=== PATIENT | female | born 1995 | race Hispanic/Latino ===

== ENCOUNTER → 2016-10-23 | Outpatient (CLI) | payer OTHER ==
[2016-10-23 18:02] LABS: CONTROL LINE HCG INT CTR LINE PRESENT
== END ==
LOC: M SMT 14:58
PROVIDERS: ATTEND Advanced Practice Midwife
DX: Z30.8 Encounter for other contraceptive management (principal); Z11.3 Encounter for screening for infections with a predominantly sexual mode of transmission

== ENCOUNTER → 2018-06-04 | Outpatient (REF) | payer OTHER | LOC: M LAB REF 17:18 | PROVIDERS: ATTEND Advanced Practice Midwife | DX: R30.0 Dysuria (principal) ==

== ENCOUNTER → 2018-06-10 | Outpatient (CLI) | payer OTHER ==
--- NOTE | 2018-06-10 14:30 | REP ---
OB ULTRASOUND: Real-time sonographic evaluation of the gravid uterus is performed. There is a single living intrauterine gestation with an estimated gestational age of 26 weeks 0 days, EDC 09/16/2018. Today's measurements indicate appropriate growth. Biometry and Growth: BPD 60 mm = 24 weeks 3 days, 16th percentile HC 237 mm = 25 weeks 5 days, 44th percentile AC 212 mm = 25 weeks 5 days, 45th percentile FL 46 mm = 25 weeks 2 days, 36th percentile HC/AC ratio 1.11 within normal range. Estimated weight 830 grams, 33rd percentile. SEEN/GROSSLY UNREMARKABLE Lateral ventricles Yes Posterior fossa Yes Upper lip Yes Four-chamber heart Yes LVOT Yes RVOT Yes Stomach Yes Cord insertion Yes Three vessel cord Yes Kidneys Yes Bladder Yes Spine Yes Cervical length: Closed and measures 3.2 cm in length. heart rate: 124 beats per minute. position: Breech. Placenta: Posterior and fundal and grade 0 with no previa or abruption. Amniotic fluid: Within normal limits. Electronically Signed by Jamil Ortiz MD 06/10/2018 04:37 P
== END ==
LOC: M RAD 12:01
PROVIDERS: ATTEND Advanced Practice Midwife
DX: Z34.82 Encounter for supervision of other normal pregnancy, second trimester (principal); Z3A.26 26 weeks gestation of pregnancy

== ENCOUNTER → 2018-06-10 | Outpatient (CLI) | payer OTHER ==
[2018-06-10 15:58] LABS: HEMATOCRIT 36.3 % (36.0-47.0); HEMOGLOBIN 12.1 g/dl (12.0-15.5); MEAN CORPUSCULAR HEMOGLOBIN 33.7 pg (27.0-33.0); MEAN CORPUSCULAR HGB CONC 33.3 g/dl (32.0-36.5); MEAN CORPUSCULAR VOLUME 101.1 fl (80.0-96.0); PLATELET COUNT, AUTOMATED 167 10^3/uL (150-450); RED BLOOD COUNT 3.59 10^6/uL (4.00-5.40)
== END ==
LOC: M LAB 12:54
PROVIDERS: ATTEND Advanced Practice Midwife
DX: Z34.82 Encounter for supervision of other normal pregnancy, second trimester (principal); Z3A.00 Weeks of gestation of pregnancy not specified

== ENCOUNTER → 2018-06-15 | Outpatient (CLI) | payer OTHER | LOC: M LAB 08:11 | PROVIDERS: ATTEND Advanced Practice Midwife | DX: Z34.82 Encounter for supervision of other normal pregnancy, second trimester (principal); Z3A.00 Weeks of gestation of pregnancy not specified ==

== ENCOUNTER → 2018-08-18 | Outpatient (REF) | payer OTHER | LOC: M LAB REF 17:30 | PROVIDERS: ATTEND Advanced Practice Midwife | DX: Z34.83 Encounter for supervision of other normal pregnancy, third trimester (principal); Z3A.00 Weeks of gestation of pregnancy not specified ==

== ENCOUNTER 2018-09-09 19:57 | Inpatient (IN) | payer OTHER ==
[~2018-09-09] VITALS: Ht 149.9 cm; Wt 64.5 kg
[2018-09-09 20:12] VITALS: BP 103/63
[2018-09-09 21:55] LABS: HEMOGLOBIN 13.4 g/dl (12.0-15.5); MEAN CORPUSCULAR HEMOGLOBIN 31.7 pg (27.0-33.0); MEAN CORPUSCULAR HGB CONC 32.7 g/dl (32.0-36.5); MEAN CORPUSCULAR VOLUME 96.9 fl (80.0-96.0); PLATELET COUNT, AUTOMATED 199 10^3/uL (150-450); RED BLOOD COUNT 4.23 10^6/uL (4.00-5.40); WHITE BLOOD COUNT 11.5 10^3/uL (4.0-10.0)
[2018-09-09] MEDS ORDERED: LR 1,000 ML IV SCH (23:31)
[2018-09-09] MEDS ORDERED: FENTANYL 2MCG/ML ROPIVACAINE 0.2% IN 0.9% NACL 100ML IVBAG As Ordered ONE (23:40)
[2018-09-09] MEDS ORDERED: OXYTOCIN DRIP 30 UNITS in APPROPRIATE DILUENT 1 EA IV SCH (23:45)
[2018-09-09 23:57] VITALS: BP 95/54
[2018-09-10] VITALS (27 sets, daily range): BP systolic 77–112; BP diastolic 50–77
[2018-09-10] MEDS ORDERED: NALOXONE INJ 0.4 MG/1 ML VIAL (J2310) IV PRN (02:30)
[2018-09-10] MEDS ORDERED: EPIDURAL COMMENT XX SCH (02:30)
[2018-09-10] MEDS ORDERED: LACTATED RINGER'S 1000 ML IV PRN (02:30)
[2018-09-10] MEDS ORDERED: ePHEDrine SULFATE 25 MG/5 ML(5MG/ML) SYRINGE IV PRN (02:30)
[2018-09-10] MEDS ORDERED: FENTANYL/ROPIVACAINE/NACL BAG 100 ML EPIDURAL SCH (02:30)
[2018-09-10] MEDS ORDERED: REFRIGERATOR IV KEYS XX PRN (02:30)
[2018-09-10] MEDS ORDERED: EPIDURAL/PCA KEYS XX PRN (02:30)
[2018-09-10] MEDS ORDERED: ONDANSETRON 4MG/2ML VIAL (J2405) IV PRN ×2 (02:30→08:15)
[2018-09-10] MEDS ORDERED: diphenhydrAMINE INJ 50MG/ML VIAL (J1200) IV PRN (02:30)
--- NOTE | 2018-09-10 06:22 | IPNPDOC ---
Obstetrical Progress Note Date of Service Sep 10, 2018 Subjective Patient is comfortable with epidural. Objective Vital Signs Date Time Temp Pulse Resp B/P (MAP) Pulse Ox O2 Delivery O2 Flow Rate FiO2 09/10/18 02:13 62 94/50 (65) 09/10/18 01:30 97.3 Assessment Heart Rate (FHR): 110 Variability: Moderate Accelerations: Positive Decelerations: None Heart Rate Tracing: Category I Tocometer Contractions: Yes Frequency: regular Strength: palpated as strong Sterile Vaginal Examination Dilation: 6 cm Effacement (%): 100% Station: 0 Postion/Presentation: Cephalic presentation Assessment and Plan EGA at Admission: 39.0 Weeks & Days 39.1 Status: Reassuring Group B Streptococcus: Negative Anticipate: Vaginal Delivery Additional Comments IV PItocin turned down to 6 mu/min. AROM to a moderate amount of clear fluid. MIGUEL ÁNGEL LOPEZ CNM Sep 10, 2018 06:22
[2018-09-10] MEDS ORDERED: OXYTOCIN DRIP 30 UNITS in APPROPRIATE DILUENT 1 EA IV SCH (08:14)
[2018-09-10] MEDS: LR 1,000 ML IV SCH ×2 (08:14→16:14)
[2018-09-10] MEDS ORDERED: MEASLES,MUMPS,RUBELLA VACCINE INJ (MMR-II) (90707) SC SCH (08:15)
[2018-09-10] MEDS ORDERED: METHYLERGONOVINE MALEATE 0.2 MG TAB PO PRN (08:15)
[2018-09-10] MEDS ORDERED: IBUPROFEN 600 MG TAB PO PRN (08:15)
[2018-09-10] MEDS ORDERED: DIBUCAINE 1% OINTMENT 30GM TOP PRN (08:15)
[2018-09-10] MEDS ORDERED: PROMETHAZINE 25 MG TAB PO PRN (08:15)
[2018-09-10] MEDS ORDERED: RHOGAM 300 MCG (1500 IU) INJ (J2790) IM SCH (08:15)
[2018-09-10] MEDS ORDERED: DOCUSATE SODIUM 100 MG CAP PO PRN (08:15)
[2018-09-10] MEDS ORDERED: ACETAMINOPHEN TAB 650MG DOSE (2X325MG) PO PRN (08:15)
--- NOTE | 2018-09-10 08:28 | NUR ---
Delivery note Spontaneous vaginal delivery Estimated gestational age at delivery: 39+1 weeks The active phase and second stage of labor progressed in normal fashion with epidural anesthesia. Patient received Pitocin labor augmentation. The head delivered left occiput anterior and restituted left occiput transverse. No nuchal cord was noted. The anterior shoulder delivered with gentle downward guidance and the remainder of the body delivered with ease. Cord clamping was delayed for approximately 1 minute after delivery. After doubly clamping the cord, I cut the cord. The was placed on the patient's chest for immediate bonding. [place] data: Apgars 9 and 10. weight , see meditech Time of delivery: 0755. Sex: Female The third stage of labor was actively managed with a bolus of IV Pitocin (30 units in 500 mL of normal saline). The placenta delivered completely intact with no missing cotyledons at 0800. A three-vessel cord with a central insertion was noted. After delivery of the placenta, the uterine fundus was approximately 2 cm below the umbilicus and firm. IV Pitocin was continued to maintain uterine tone. A normal, low level of uterine bleeding was noted. The cervix, vagina, vulva and perineum were inspected for lacerations. A second degree laceration was noted. This was repaired with 3-0 Vicryl in typical fashion. Excellent hemostasis was noted. Estimated blood loss: 300mL All sponges, needles, and instruments were accounted for per [facility] department protocol. Chandler Myers D.O., F.Jesus.Sacr.
--- NOTE | 2018-09-10 08:54 | HPE ---
DATE OF ADMISSION: 09/09/2018 HISTORY OF PRESENT ILLNESS: The patient is a 23-year-old female who was a 2, para 1-0-0-1 at 39 weeks' gestation with an expected date of delivery (PAMELA) of 09/16/2018 based off of her last menstrual period (LMP) and consistent with her first-trimester ultrasound. She initiated care in her first trimester with [facility]. Her has been uncomplicated. She presents to labor and delivery today with complaints of decreased movement and contractions. She denies leaking of fluid or vaginal bleeding. After being monitored, she does report active movement. ALLERGIES: No known drug allergies. CURRENT MEDICATIONS: None. MEDICAL HISTORY: No current problems. SURGICAL HISTORY: Cystectomy, breast augmentation, liposuction. FAMILY HISTORY: Diabetes, kidney disease, depression. SOCIAL HISTORY: The patient is . She denies any use of alcohol during her or prior to . She denies any use of illicit drug use during or prior to . She denies being a smoker. She does have a history of chlamydia. PAST MEDICAL PREGNANCIES: January 2015, the patient delivered a living female by vaginal delivery at 39 weeks' gestation weighing 9 pounds without any complications. LABORATORIES: Blood type is A positive. Antibody screen is negative. Her hemoglobin and hematocrit in her first trimester were 12.1 and 36 with platelets that are 172. Rubella is immune. Her [facility] ([facility]) is nonreactive. Her urine culture has no growth. Hepatitis B surface antigen is negative. HIV is negative. Hepatitis C is nonreactive. Gonorrhea and chlamydia are both negative. First trimester noninvasive screening test (NIPT) showed low risk for aneuploidy and also a normal female. 1-hour glucose test was 146 with a hemoglobin and hematocrit at that time of 12.1 and 36.3 with platelets of 167. She did a 3-hour glucola test with fasting at 76. Her 1-hour was 116. Her 2-hour was 88. Her 3-hour was 100. Her group B streptococcus (GBS) is negative. HEART RATE: 130 beats per minute, moderate variability, positive accelerations, no decelerations. Contractions are frequent. Contractions are every 3-7 minutes. SVE: 4/80/-2, soft, anterior, no show. VITAL SIGNS: Temperature is 96.4, respiratory rate is 18, blood pressure is 103/63, heart rate is 70. PHYSICAL ASSESSMENT: GENERAL: Alert and oriented times three. RESPIRATORY: Regular rate with no use of accessory muscles. ABDOMEN: Gravid and nontender to touch. Cephalic presentation through vaginal examination and Aden maneuver. LOWER EXTREMITIES: No edema. No clonus. ASSESSMENT: Intrauterine (IUP) at 39 weeks' gestation, category 1 heart rate tracing, early labor, group B streptococcus (GBS) negative. PLAN: Admit the patient to labor and delivery. Out of bed ad jae. Clear- liquid diet. Saline lock and IV per unit protocol. Anesthesia consult per patient's request with a lactated Ringer bolus of 800 mL prior to epidural. Consider artificial rupture of membranes (AROM) to help augment labor or intravenous (IV) Pitocin. Anticipate cervical change and spontaneous vaginal delivery. MTDD
[2018-09-10] MEDS: PRENATAL VITAMINS CHEWABLE TABLET PO SCH (09:00)
[2018-09-10] MEDS: IBUPROFEN 800 MG TAB PO PRN (17:35)
[2018-09-10] MEDS: ACETAMINOPHEN 500 MG TAB PO PRN (21:28)
[2018-09-11] MEDS: IBUPROFEN 800 MG TAB PO PRN ×2 (05:05→19:43)
[2018-09-11 05:25] VITALS: BP 90/54
--- NOTE | 2018-09-11 06:51 | NUR ---
Day 1 Status post , uncomplicated Subjective Pain is well controlled. Lochia decreasing and minimal. Voiding spontaneously. Tolerating a regular diet. Ambulating without any assistance. Denies any subjective fever/chills/nausea/vomiting/headache/visual changes/shortness of breath/chest pain. Breast feeding. Desires d/c to home today. Objective Vitals: Normotensive, normal heart rate, afebrile, adequate urine output. Heart: regular, rate, and rhythm. no murmurs/gallops/rubs Lungs: clear to auscultation bilaterally, no wheezes/crackles/rales/ronchi Abd: soft, nontender, nondistended, uterine fundus is 2cm below umbilicus and firm Ext: no significant edema, nontender, negative Vern's bilaterally. Assessment/Plan: day 1. Recovering well. Hemodynamically stable, afebrile, good pain control. -Routine care -Discharge to home today -Routine infectious, fever, pain, and bleeding precautions reviewed Dr. Chandler Myers, Mike.O., F.A.C.O.G.
[2018-09-11] MEDS ORDERED: IBUP80TA PO (07:18)
[2018-09-11] MEDS: PRENATAL VITAMINS CHEWABLE TABLET PO SCH (08:21)
[2018-09-11] MEDS: ACETAMINOPHEN 500 MG TAB PO PRN ×2 (08:26→15:35)
[2018-09-11 18:00] VITALS: BP 92/52
[2018-09-12] MEDS: IBUPROFEN 800 MG TAB PO PRN (05:20)
[2018-09-12 05:47] VITALS: BP 90/50
[2018-09-12] MEDS: PRENATAL VITAMINS CHEWABLE TABLET PO SCH (10:12)
[2018-09-12] MEDS: ACETAMINOPHEN 500 MG TAB PO PRN (10:13)
== END 2018-09-12 10:50 | disposition home or self-care (01) | DRG 807 ==
LOC: M LDO 19:57 → M LDI 21:12 → M OBS 09-10 11:00
PROVIDERS: ADMIT Advanced Practice Midwife; ATTEND Obstetrics & Gynecology
PROC: 10E0XZZ Delivery of Products of Conception, External Approach (ICD-10-PCS; principal; 2018-09-10)
PROC: 0KQM0ZZ Repair Perineum Muscle, Open Approach (ICD-10-PCS; 2018-09-10)
DX: O80 Encounter for full-term uncomplicated delivery (principal); Z37.0 Single live birth; Z3A.39 39 weeks gestation of pregnancy; O70.1 Second degree perineal laceration during delivery

== ENCOUNTER 2019-03-19 10:09 | Emergency (ER) | payer OTHER ==
[~2019-03-19 10:09] MED LIST: IBUP80TA PO
[2019-03-19 10:49] LABS: BASO % 0.3 % (0.0-1.0); EOS # 0.1 10^3/uL (0.0-0.5); EOS % 0.7 % (0.0-3.0); HEMATOCRIT 39.3 % (36.0-47.0); HEMOGLOBIN 12.6 g/dl (12.0-15.5); LYMPH # 1.4 10^3/uL (1.5-5.0); MEAN CORPUSCULAR HEMOGLOBIN 30.4 pg (27.0-33.0); MEAN CORPUSCULAR HGB CONC 32.1 g/dl (32.0-36.5); MEAN CORPUSCULAR VOLUME 94.7 fl (80.0-96.0); MONO # 0.6 10^3/uL (0.0-0.8); MONO % 6.5 % (0.0-5.0); NEUTROPHILS # 7.2 10^3/uL (1.5-8.5); NEUTROPHILS % 77.3 % (36.0-66.0); PLATELET COUNT, AUTOMATED 189 10^3/uL (150-450); RED BLOOD COUNT 4.15 10^6/uL (4.00-5.40); WHITE BLOOD COUNT 9.4 10^3/uL (4.0-10.0)
[2019-03-19 11:43] LABS: BLOOD UREA NITROGEN 14 MG/DL (7-18); CALCIUM LEVEL 8.7 MG/DL (8.5-10.1); CARBON DIOXIDE LEVEL 25 MEQ/L (21-32); CHLORIDE LEVEL 107 MEQ/L (98-107); CREATININE FOR GFR 0.58 MG/DL (0.55-1.30); GLOMERULAR FILTRATION RATE > 60.0 (>60); GLUCOSE, FASTING 84 MG/DL (70-100); HCG, SERUM QUANTITATIVE 65371 MIU/ML; SODIUM LEVEL 139 MEQ/L (136-145)
--- NOTE | 2019-03-19 12:02 | REP ---
FIRST TRIMESTER ULTRASOUND: Real-time sonographic evaluation of the gravid uterus performed. There is a single intrauterine gestation. Estimated gestational age is 6 weeks 6 days based on a crown-rump length of 9 mm. EDC 11/06/2019. heart rate 143 beats per minute. There is a subchorionic hemorrhage to the right of the gestational sac measuring 3.0 x 0.4 x 0.9 cm. No maternal adnexal region abnormalities are seen. There is no evidence of ovarian torsion. Electronically Signed by Jamil Ortiz MD 03/20/2019 03:15 P
[2019-03-19 12:40] LABS: CHLAMYDIA DNA AMPLIFICATION NEGATIVE (NEGATIVE); GC DNA AMPLIFICATION NEGATIVE (NEGATIVE)
[2019-03-19 13:11] VITALS: BP 109/59
== END 2019-03-19 13:21 | disposition home or self-care (01) ==
LOC: M ED 10:09
DX: N83.291 Other ovarian cyst, right side (principal); Z3A.01 Less than 8 weeks gestation of pregnancy

== ENCOUNTER 2019-10-07 10:23 | Emergency (ER) | payer OTHER ==
--- NOTE | 2019-11-26 14:28 | REP ---
CHEST X-RAY: TWO-VIEWS HISTORY: Unavailable. This report was delayed due to a protracted network disruption experienced by this facility. FINDINGS: The lungs are well-inflated and clear. Monitoring electrodes are seen. Pleural angles are sharp. Heart size is normal. IMPRESSION: Negative chest x-ray. MTDD
== END 2019-10-07 13:36 | disposition home or self-care (01) ==
LOC: M ED 10:23
DX: J06.9 Acute upper respiratory infection, unspecified (principal)

== ENCOUNTER 2019-11-12 18:41 | Emergency (ER) | payer OTHER ==
[~2019-11-12] VITALS: Ht 160 cm; Wt 56.0 kg
[2019-11-12] MEDS ORDERED: PYRI1TAB5 PO (20:43)
[2019-11-12] MEDS ORDERED: CIPR-249 PO (20:43)
[2019-11-12] MEDS ORDERED: CIPROFLOXACIN 500MG TABLET PO ONE (20:45)
[2019-11-12 20:58] VITALS: BP 100/60
== END 2019-11-12 21:00 | disposition home or self-care (01) ==
LOC: M ED 18:41
DX: N39.0 Urinary tract infection, site not specified (principal)

== ENCOUNTER → 2020-05-22 | Outpatient (CLI) | payer OTHER ==
[~2020-05-22] MED LIST changes: +CIPR-249 PO; +PYRI1TAB5 PO
== END ==
LOC: M PLALAB 12:23
PROVIDERS: ATTEND Obstetrics & Gynecology
DX: Z34.81 Encounter for supervision of other normal pregnancy, first trimester (principal)

== ENCOUNTER → 2020-05-22 | Outpatient (REF) | payer OTHER | LOC: M PLALAB 12:20 | PROVIDERS: ATTEND Obstetrics & Gynecology | DX: Z3A.12 12 weeks gestation of pregnancy (principal) ==

== ENCOUNTER → 2020-05-25 | Outpatient (REF) | payer OTHER ==
[2020-05-25 15:53] LABS: HEMOGLOBIN 13.9 g/dl (12.0-15.5); MEAN CORPUSCULAR HEMOGLOBIN 32.9 pg (27.0-33.0); MEAN CORPUSCULAR HGB CONC 33.9 g/dl (32.0-36.5); MEAN CORPUSCULAR VOLUME 96.9 fl (80.0-96.0); PLATELET COUNT, AUTOMATED 151 10^3/uL (150-450); RED BLOOD COUNT 4.23 10^6/uL (4.00-5.40); WHITE BLOOD COUNT 10.8 10^3/uL (4.0-10.0)
[2020-05-25 17:38] LABS: HEPATITIS C VIRUS ABY INDEX < 0.0 INDEX (<0.8); HIV 1&2 SCREEN CENTAUR NEGATIVE (NEGATIVE)
== END ==
LOC: M PLALAB 14:03
PROVIDERS: ATTEND Obstetrics & Gynecology
DX: Z36.89 Encounter for other specified antenatal screening (principal); Z3A.12 12 weeks gestation of pregnancy

== ENCOUNTER → 2020-06-22 | Outpatient (CLI) | payer OTHER | LOC: M WHC 12:42 | PROVIDERS: ATTEND Obstetrics & Gynecology | DX: Z36.89 Encounter for other specified antenatal screening (principal); Z3A.17 17 weeks gestation of pregnancy ==

== ENCOUNTER → 2020-07-14 | Outpatient (CLI) | payer OTHER ==
--- NOTE | 2020-07-14 12:08 | REP ---
INDICATION: ANATOMY. COMPARISON: None. TECHNIQUE: Trans abdominal obstetric sonography. FINDINGS: Scanning through the gravid uterus demonstrates a viable single intrauterine gestation in breech lie. motion is observed and heart rate is recorded at 143 beats per minute. A anterior placenta is seen, grade 1, without evidence of placenta previa. Closed cervical length is measured at 3.7 cm transabdominally. No extrauterine abnormality is observed. Amniotic fluid is subjectively normal. No anomaly is seen. The following anatomic structures are identified and felt to be sonographically unremarkable: cranium, cavum, cerebellum and posterior fossa, face and profile, lungs, four-chamber heart with left and right ventricular outflow tract views, diaphragm, left-sided stomach, abdominal wall cord insertion, three-vessel umbilical cord, kidneys and bladder, spine, and upper and lower extremities. There is a small right-sided choroid plexus cyst noted. Biometry chart: BPD 4.7 cm, 20 weeks 2 days Head circumference 17.9 cm, 20 weeks 2 days Abdominal circumference 14.6 cm, 19 weeks 6 days Femur length 3.3 cm, 20 weeks 3 days Humeral length 3.2 cm, 20 weeks 5 days HC AC ratio normal 1.22 Cephalic index normal 0.73 Estimated weight 338 g, 0 lb 11 oz, 48th percentile for 20 weeks 1 day IMPRESSION: Viable single intrauterine gestation at 20 weeks 3 days by today's composite sonographic criteria. PAMELA by today's sonography November 28, 2020. No complication identified. No new PAMELA November 30, 2020, 20 weeks 1 day. Small choroid plexus cyst noted on the right. <Electronically signed by Edilberto Avendaño > 07/14/20 [id number]
== END ==
LOC: M WHC 09:36
PROVIDERS: ATTEND Obstetrics & Gynecology
DX: Z36.3 Encounter for antenatal screening for malformations (principal); Z3A.20 20 weeks gestation of pregnancy; G93.0 Cerebral cysts

== ENCOUNTER → 2020-10-11 | Outpatient (CLI) | payer OTHER ==
[2020-10-11 13:46] LABS: HEMATOCRIT 34.4 % (36.0-47.0); HEMOGLOBIN 10.6 g/dl (12.0-15.5); MEAN CORPUSCULAR HEMOGLOBIN 28.5 pg (27.0-33.0); MEAN CORPUSCULAR HGB CONC 30.8 g/dl (32.0-36.5); MEAN CORPUSCULAR VOLUME 92.5 fl (80.0-96.0); PLATELET COUNT, AUTOMATED 163 10^3/uL (150-450); RED BLOOD COUNT 3.72 10^6/uL (4.00-5.40)
== END ==
LOC: M PLALAB 11:22
PROVIDERS: ATTEND Advanced Practice Midwife
DX: Z34.82 Encounter for supervision of other normal pregnancy, second trimester (principal)

== ENCOUNTER 2020-11-05 07:25 | Outpatient (CLI) | payer OTHER ==
[2020-11-05 07:41] VITALS: BP 112/55
[2020-11-05] MEDS ORDERED: 3 DA2CRE PV (11:32)
--- NOTE | 2020-11-05 11:32 | IPNPDOC ---
Text Note Date of Service The patient was seen on 11/05/20. NOTE Labor and Delivery Triage Note: S: 25-year-old 3 para 2 presents with vaginal itching for several years. Denies contractions, vaginal bleeding or LOF. Reports active movement. O: vss, AF no ctx Cat 1 tracing Gen: well appearing, NAD Abd: gravid, soft, nttp cx: [long/ closed] SSE: GC culture collected. Wet prep obtained positive for yeast A/P: 25-year-old with yeast infection reassuring status -home with PTL precautions and FKCs. -f/u at next OB appt Jannie Riggs MD VS,Lanette, I+O VS, Lanette, I+O Vital Signs Date Time Temp Pulse Resp B/P (MAP) Pulse Ox O2 Delivery O2 Flow Rate FiO2 11/05/20 07:41 97.6 74 18 112/55 (74) JANNIE RIGGS MD. Nov 05, 2020 11:32
[2020-11-05 11:53] LABS: GC DNA AMPLIFICATION NEGATIVE (NEGATIVE)
== END 2020-11-05 10:30 | disposition home or self-care (01) ==
LOC: M LDO 07:25
PROVIDERS: ATTEND Obstetrics & Gynecology
DX: O23.593 Infection of other part of genital tract in pregnancy, third trimester (principal); B37.3 Candidiasis of vulva and vagina; Z3A.37 37 weeks gestation of pregnancy
CPT/HCPCS: 59025; 87661; G0378; G0463

== ENCOUNTER → 2020-11-09 | Outpatient (REF) | payer OTHER ==
[~2020-11-09] MED LIST changes: +3 DA2CRE PV; +ACET-683 PO; +PRENTAB9 PO
== END ==
LOC: M SFHCWAGY 17:00
PROVIDERS: ATTEND Obstetrics & Gynecology
DX: Z34.93 Encounter for supervision of normal pregnancy, unspecified, third trimester (principal)